=== PATIENT | male | born 1995 | race Caucasian/White ===

== ENCOUNTER 2020-02-10 22:38 | Emergency (ER) | payer SELFPAY ==
[2020-02-10 22:40] VITALS: BP 150/81; PULSE 74; RESP 16; TEMP 36.3; O2SAT 100
--- NOTE | 2020-02-10 22:56 | ED.GENADULT ---
HPI - General Adult General Chief complaint: Dental/Oral Stated complaint: something in throat x 1 week Time Seen by Provider: 02/10/20 22:49 Source: patient History of Present Illness HPI narrative: Pt c/o sore throat x 1 week. Pt states it hurts when he swallows. Denies throat swelling. Denies fever. Denies neck swelling. Associated symptoms: cough and fever/chills Review of Systems Review of Systems: All systems reviewed & are unremarkable except as noted in HPI and below ENT: Denies dizziness, Denies epistaxis, Denies nasal congestion and Reports sore throat Cardiovascular: Cardiovascular: Denies chest pain Respiratory: Respiratory: Denies chest congestion, Denies dyspnea and Denies wheezing Gastrointestinal: Gastrointestinal: Denies abdominal pain, Denies nausea and Denies vomiting [facility] Social History Social History Gender identity (if verbalized by the patient): Male Exam Const: General: no acute distress and alert Orientation/consciousness: patient oriented x3 HENMT: Head: normal to inspection General nose exam: Normal nares present Face and sinus: normal facial exam Mouth: Yes Normal oral and palatal mucosa present and Yes moist mucous membranes Throat: uvula midline Other: mild oropharyngeal erythema, no exudates, no edema Neck: Neck: normal visual inspection, no lymphadenopathy and no meningeal signs Resp: Effort & Inspection: normal respiratory effort Course Vital Signs Vital signs: Vital Signs Temperature 36.3 C L 02/10/20 22:40 Pulse Rate 74 02/10/20 22:40 Respiratory Rate 16 02/10/20 22:40 Blood Pressure 150/81 H 02/10/20 22:40 Pulse Oximetry 100 02/10/20 22:40 Temperature 36.3 C L 02/10/20 22:40 Pulse Rate 68 02/11/20 00:10 Respiratory Rate 18 02/11/20 00:10 Blood Pressure 132/68 02/11/20 00:10 Pulse Oximetry 99 02/11/20 00:10 Medical Decision Making [facility] Narrative Medical decision making narrative: RAPID STREP NEG. Vital Signs Vital Signs: Vital Signs Temperature 36.3 C L 02/10/20 22:40 Pulse Rate 74 02/10/20 22:40 Respiratory Rate 16 02/10/20 22:40 Blood Pressure 150/81 H 02/10/20 22:40 Pulse Oximetry 100 02/10/20 22:40 Temperature 36.3 C L 02/10/20 22:40 Pulse Rate 68 02/11/20 00:10 Respiratory Rate 18 02/11/20 00:10 Blood Pressure 132/68 02/11/20 00:10 Pulse Oximetry 99 02/11/20 00:10 Discharge Plan Discharge Clinical Impression: Pharyngitis, acute Qualifiers: Pharyngitis/tonsillitis etiology: other specified organisms Qualified Code(s): J02.8 - Acute pharyngitis due to other specified organisms Patient Disposition: Home, Self-Care Condition: Stable Instructions: Antibiotic Form, Pharyngitis (ED) Patient Language: Hungarian Follow-up/Referrals: PHYSICIAN,SHEEP CLIPPER [Primary Care Provider] - Stand Alone Forms: Work/School Release IP Time of Disposition: 23:01 Discharge Date/Time: 02/11/20 00:10
[2020-02-11 00:10] VITALS: BP 132/68; PULSE 68; RESP 18; O2SAT 99
== END 2020-02-11 00:10 | disposition home or self-care (01) ==
PROVIDERS: Emergency Provider Emergency Medicine
DX: J02.8 Acute pharyngitis due to other specified organisms (principal)
CPT/HCPCS: 87880; 99283